=== PATIENT | male | born 1945 | race Caucasian/White ===

== ENCOUNTER 2020-09-05 12:21 | Observation (INO) ==
[2020-09-05] MEDS ORDERED: Lidocaine -MPF 2% 2 ML VIAL ONE (15:47)
[2020-09-05] MEDS ORDERED: Ondansetron 4 MG/2 ML VIAL ONE (15:47)
[2020-09-05] MEDS ORDERED: *HR* Propofol 200 MG/20 ML VIAL IVP ONE (15:47)
[2020-09-05] MEDS ORDERED: Dexamethasone 4 MG/ML VIAL ONE (15:47)
[2020-09-05] MEDS ORDERED: *HR* FentaNYL (PF) 100 MCG/2 ML VIAL ONE (15:47)
[2020-09-05] MEDS ORDERED: *HR* Succinylcholine 200 MG/10 ML VIAL IVP ONE (15:47)
[2020-09-05] MEDS ORDERED: Lidocaine -MPF 4% 5 ML AMPUL ONE (15:47)
[2020-09-05 19:45] VITALS: BP 152/80
[2020-09-05] MEDS ORDERED: Famotidine 20 MG TABLET PO SCH (21:00)
== END 2020-09-05 21:30 | disposition left against medical advice (07) ==
LOC: 3ANU 12:21 → EMEROOARM 12:21 → 3ANU 14:34
PROVIDERS: ADMIT Surgery; ATTEND Surgery